=== PATIENT | female | born 1975 | race Asian ===

== ENCOUNTER → 2019-11-06 | Outpatient (CLI) | payer BC ==
--- NOTE | 2019-11-06 14:03 | RAD ---
Study: US OB < 14 WKS DATE: 11/06/2019 11:00 AM INDICATION: High-risk . COMPARISON: None TECHNIQUE: Transabdominal ultrasonography of the pelvis was performed. Color Doppler and duplex were utilized as appropriate. FINDINGS: The uterus is measured at 14.8 x 12.2 x 6.2 cm. No uterine mass. Intrauterine gestational sac containing a pole with a crown-rump length of 7.1 cm. heart rate of 152 bpm. No subchorionic hemorrhage. Biparietal diameter: 2.17 cm. 13 weeks 4 days Head circumference: 8.23 cm. 13 weeks 4 days. Abdominal circumference: 6.68 cm. 13 weeks 2 days. The cervix is closed measuring 4.2 cm in length transabdominally. The right ovary measures 3.0 x 2.0 x 1.8 cm. The left ovary measures 2.8 x 2.6 x 1.8 cm. Normal Doppler flow to both ovaries. No free fluid within the deep pelvis. IMPRESSION: Single live intrauterine with an estimated gestational age of 13 weeks 3 days corresponding to an estimated delivery date of 05/10/2020. No unexpected findings. Electronically signed by: HAI HILL MD (11/06/2019 2:00 PM) [id number]
== END | disposition home or self-care (01) ==
LOC: US 10:56
PROVIDERS: ATTEND Nurse Practitioner Gerontology
DX: O09.519 Supervision of elderly primigravida, unspecified trimester (principal); O00.01 Abdominal pregnancy with intrauterine pregnancy; Z3A.13 13 weeks gestation of pregnancy
CPT/HCPCS: 76801